=== PATIENT | female | born 2000 | race Caucasian/White ===

== ENCOUNTER 2019-08-10 08:48 | Outpatient (CLI) | payer BC ==
[~2019-08-10] VITALS: Ht 172.7 cm; Wt 106.4 kg
[2019-08-10] MEDS ORDERED: METR500T PO (09:46)
[2019-08-10] MEDS ORDERED: AMOX-358 PO (09:46)
[2019-08-10] MEDS ORDERED: PNV1TABL81 PO (09:46)
== END 2019-08-10 09:54 | disposition home or self-care (01) ==
LOC: PREOP 08:48
PROVIDERS: ATTEND Obstetrics & Gynecology
DX: Z01.818 Encounter for other preprocedural examination (principal)

== ENCOUNTER 2019-10-09 12:17 | Outpatient (CLI) | payer BC ==
[~2019-10-09] VITALS: Ht 172.7 cm; Wt 105.9 kg
[~2019-10-09 12:17] MED LIST: AMOX-358 PO; METR500T PO; PNV1TABL81 PO
[2019-10-09 12:20] VITALS: BP 122/71
--- NOTE | 2019-10-09 12:20 | NUR ---
ALEJANDRA CORDON presented to unit via ambulation from ED, accompanied by friend, with c/o BACK / ABD PAIN. ALEJANDRA CORDON weighed, gowned, voided, and to bed. EFHM and TOCO applied, VS taken. ALEJANDRA CORDON oriented to bed controls, call light, TV, heat, and A/C controls.
[2019-10-09 12:30] VITALS: BP 122/71
--- NOTE | 2019-10-09 12:47 | NUR ---
Dr Gutierrez called and notified of pt arrival. Pt is G1, due 02/20 with c/o constant lower back ache that radiates into abd since last night. notified of FHR, ctx pattern, SVE, urine dipstick, VS. Order to dismiss pt to home.
--- NOTE | 2019-10-09 13:13 | NUR ---
Discharge instructions explained to pt with copy provided to pt. Pt verbalizes understanding of instructions and signs to verify. Pt denies needs or concerns. Ambulates off unit to private vehicle with all personal belongings, accompanied by S.o. No s/s of distress noted.
--- NOTE | 2019-10-11 08:27 | Physician Query-Final Dx ---
CARINA GARNER 10/11/19 0827: Clinic Account Progress/Dx Physician Query: Please give diagnosis Please include # weeks gestation Date of Service Oct 09, 2019 at 12:17 CHRISTOPHER PETTY MD 10/13/19 1428: Clinic Account Progress/Dx DIAGNOSIS: Diagnosis 20 week with false labor CARINA GARNER Oct 11, 2019 08:27 CHRISTOPHER PETTY MD Oct 13, 2019 14:28
== END 2019-10-09 13:13 | disposition home or self-care (01) ==
LOC: WSo 12:17 → LDRP 12:17 → WSo 13:13
PROVIDERS: ATTEND Obstetrics & Gynecology
DX: O26.892 Other specified pregnancy related conditions, second trimester (principal); M54.5 Low back pain; Z3A.20 20 weeks gestation of pregnancy
CPT/HCPCS: 99213

== ENCOUNTER 2019-12-08 22:00 | Outpatient (CLI) | payer BC, MEDICAID ==
[~2019-12-08] VITALS: Ht 172.7 cm; Wt 108.1 kg
--- NOTE | 2019-12-08 22:10 | NUR ---
ALEJANDRA CORDON presented to unit via AMBULATION from ED, accompanied by SO, with c/o VAGINAL BLEEDING,VOMITING. ALEJANDRA CORDON weighed, gowned, voided, and to bed. EFHM and TOCO applied, VS taken. ALEJANDRA CORDON oriented to bed controls, call light, TV, heat, and A/C controls.
[2019-12-08 22:20] VITALS: BP 127/72
[2019-12-08] MEDS ORDERED: D5 LR IV SOLUTION 1,000 ML IV ONE ×2 (22:28→22:45)
[2019-12-08] MEDS ORDERED: METR500T PO (22:57)
[2019-12-08 23:45] VITALS: BP 127/72
--- NOTE | 2019-12-08 23:45 | NUR ---
pt IV discontinued and discharge instruction discussed. No questions at this time. Pt ambulated to private vehicle with SO.
--- NOTE | 2019-12-09 09:39 | Physician Query-Final Dx ---
CARINA GARNER 12/09/19 0939: Clinic Account Progress/Dx Physician Query: Please give diagnosis Please include # weeks gestation Date of Service Dec 08, 2019 at 22:00 CHRISTOPHER PETTY MD 12/09/19 1336: Clinic Account Progress/Dx DIAGNOSIS: Diagnosis 28 weeks - false labor CARINA GARNER Dec 09, 2019 09:39 CHRISTOPHER PETTY MD Dec 09, 2019 13:36
== END 2019-12-08 23:45 | disposition home or self-care (01) ==
LOC: WSo 22:00 → LDRP 22:00 → WSo 23:45
PROVIDERS: ATTEND Obstetrics & Gynecology
DX: O47.02 False labor before 37 completed weeks of gestation, second trimester (principal); Z3A.28 28 weeks gestation of pregnancy

== ENCOUNTER 2020-01-19 22:50 | Outpatient (CLI) | payer MEDICAID ==
[~2020-01-19] VITALS: Ht 172.7 cm; Wt 108.2 kg
--- NOTE | 2020-01-19 22:57 | NUR ---
ALEJANDRA CORDON presented to unit via ambulatory from ED, accompanied by family, with c/o ABD PAIN. ALEJANDRA CORDON weighed, gowned, voided, and to bed. EFHM and TOCO applied, VS taken. ALEJANDRA CORDON oriented to bed controls, call light, TV, heat, and A/C controls.
[2020-01-19 23:07] VITALS: BP 164/82
[2020-01-19 23:12] VITALS: BP 123/71
[2020-01-19 23:16] VITALS: BP 164/82
[2020-01-19 23:17] LABS: BILIRUBIN,URINE NEGATIVE (NEGATIVE); CLARITY,URINE CLOUDY; COLOR,URINE YELLOW; GLUCOSE, URINE (UA) NEGATIVE (NEGATIVE); KETONES,URINE TRACE (NEGATIVE); LEUKOCYTE ESTERASE ,URINE 2+ (NEGATIVE); NITRITE,URINE NEGATIVE (NEGATIVE); PROTEIN,URINE NEGATIVE (NEGATIVE)
--- NOTE | 2020-01-19 23:17 | NUR ---
dr. brito called and updated on pt's arrival and complaints. New orders received.
[2020-01-19 23:25] LABS: BACTERIA,URINE MODERATE /HPF; WBC,URINE 25-50 /HPF
[2020-01-19] MEDS ORDERED: D5 LR IV SOLUTION 1,000 ML IV ONE (23:30)
[2020-01-20] VITALS: BP 133/82
--- NOTE | 2020-01-20 00:17 | NUR ---
Discharge instructions reviewed with pt and s.o. Pt denies any questions or concerns. Encouraged to call if needing anything. Signature sheet signed, placed on chart. Offered wheelchair, denied per pt.
--- NOTE | 2020-01-20 00:33 | NUR ---
IV removed. Pt ambulating off unit at time with s.o. at side. No signs of distress noted.
--- NOTE | 2020-01-20 08:38 | Physician Query-Final Dx ---
CARINA GARNER 01/20/20 0838: Clinic Account Progress/Dx Physician Query: Please give diagnosis Please include # weeks gestation Date of Service Jan 19, 2020 at 22:50 CHRISTOPHER PETTY MD 01/21/20 0736: Clinic Account Progress/Dx DIAGNOSIS: Diagnosis FALSE Labor at 35 weeks gestation CARINA GARNER Jan 20, 2020 08:38 CHRISTOPHER PETTY MD Jan 21, 2020 07:36
== END 2020-01-20 00:33 | disposition home or self-care (01) ==
LOC: WSo 22:50 → LDRP 22:51 → WSo 01-20 00:33
PROVIDERS: ATTEND Obstetrics & Gynecology
DX: O47.03 False labor before 37 completed weeks of gestation, third trimester (principal); Z3A.35 35 weeks gestation of pregnancy
CPT/HCPCS: 81000; 82570; 84156; 87088; 96360; G0463; 99213

== ENCOUNTER 2020-02-09 12:04 | Outpatient (CLI) | payer BC, MEDICAID ==
[~2020-02-09] VITALS: Ht 172 cm; Wt 109.9 kg
[2020-02-09] MEDS ORDERED: FAMO40TA72 PO (15:13)
--- NOTE | 2020-02-15 09:03 | History & Physical ---
History and Physical Date Seen by Provider: Feb 16, 2020 this patient is a 20-year-old 1 femalethat presents at 39 weeks plus gestation Patient had maintained from the very beginning of this that she did not want to experienced labor. She did not want a pelvic trauma, labor pain, vaginal damage and/or repair. patient specifically requested primary delivery. We had a lengthy discussion regarding delivery options, risks with both vaginal delivery and , recovery and follow-up with both. Surgical risk and complications with both. Pain control with both. Patient has maintained throughout the that she does not want to labor. We have planned a primary . Patient denies rupture membranes or bleeding. Allergies are to latex Medications are vitamins Medical social and surgical histories are per the antepartum record HEENT exam is normal Neck is supple no lymphadenopathy and no thyromegaly Abdomen is gravid Extremities show no clubbing or cyanosis There is no Homans sign. Pelvic exam is deferred Assessment and plan term at 39+ weeks gestation patient who specifically requests primary delivery. Patient has been fully counseled regarding surgical risks complications recovery and follow-up. She understands and accepts those risks and is ready to proceed 39 week gestation admitted for primary delivery Allergies and Home Medications Allergies Coded Allergies: latex (Verified Allergy, Mild, RASH, 02/09/20) Home Medications Famotidine 40 Mg Tablet, 40 MG PO BID, (Reported) CHRISTOPHER PETTY MD Feb 15, 2020 09:03
== END 2020-02-09 15:22 | disposition home or self-care (01) ==
LOC: PREOP 12:04
PROVIDERS: ATTEND Obstetrics & Gynecology
DX: Z01.818 Encounter for other preprocedural examination (principal)

== ENCOUNTER 2020-02-16 06:15 | Inpatient (IN) | payer MEDICAID ==
[2020-02-16] VITALS (9 sets, daily range): BP systolic 99–130; BP diastolic 65–83
[~2020-02-16] VITALS: Ht 172.7 cm; Wt 107.8 kg
[~2020-02-16 06:15] MED LIST changes: +CITRIC ACID/SOB CIT (BICITRA) 30 ML UDC ONE; +FAMO40TA72 PO; +FAMOTIDINE 20MG/2ML IV (PEPCID) ONE; +METOCLOPRAMIDE INJ 10 MG/2 ML (REGLAN) ONE; +ceFAZolin 2 GM IV Premixed 50 ML ONE; +metroNIDAZOLE 500MG/100ML IVPB 100 ML ONE
--- NOTE | 2020-02-16 06:15 | NUR ---
ALEJANDRA CORDON presented to unit via cs from ED, accompanied by s/o, for . ALEJANDRA CORDON weighed, gowned, voided, and to bed. EFHM and TOCO applied, VS taken. ALEJANDRA CORDON oriented to bed controls, call light, TV, heat, and A/C controls. per nancy rn
[2020-02-16] MEDS ORDERED: D5 LR IV SOLUTION 1,000 ML IV SCH ×2 (06:23→08:11)
[2020-02-16] MEDS ORDERED: LACTATED RINGERS 1,000 ML IV PRN ×2 (06:27)
[2020-02-16] MEDS ORDERED: ceFAZolin 2 GM IV Premixed 50 ML IV ONE (06:30)
[2020-02-16] MEDS ORDERED: CATHETER FLUSH 10 ML SYR IV PRN (06:30)
[2020-02-16] MEDS ORDERED: metroNIDAZOLE 500MG/100ML IVPB 100 ML IV ONE (06:30)
[2020-02-16] MEDS ORDERED: METOCLOPRAMIDE INJ 10 MG/2 ML (REGLAN) IV ONE (06:30)
[2020-02-16] MEDS ORDERED: FAMOTIDINE 20MG/2ML IV (PEPCID) IV ONE (06:30)
[2020-02-16] MEDS ORDERED: CITRIC ACID/SOB CIT (BICITRA) 30 ML UDC PO ONE (06:30)
[2020-02-16] MEDS ORDERED: OXYTOCIN PRE-MIX DRIP 1,000 ML IV ONE (06:32)
[2020-02-16] MEDS ORDERED: BUPIVACAINE 0.5% 30 ML (SENSORCAINE) VIAL ONE (06:40)
[2020-02-16] MEDS ORDERED: fentaNYL INJECTION 100 MCG/2 ML AMP ONE (06:41)
[2020-02-16 07:05] LABS: BASOPHILS % (AUTO) 0 % (0-10); EOSINOPHILS # (AUTO) 0.1 10^3/uL (0.0-0.3); EOSINOPHILS % (AUTO) 2 % (0-10); HEMATOCRIT 33 % (35-52); HEMOGLOBIN 11.1 G/DL (11.5-16.0); LYMPHOCYTES # (AUTO) 2.7 X 10^3 (1.0-4.0); LYMPHOCYTES % (AUTO) 30 % (12-44); MEAN CORPUSCULAR HEMOGLOBIN 28 PG (25-34); MEAN CORPUSCULAR HGB CONC 33 G/DL (32-36); MEAN CORPUSCULAR VOLUME 85 FL (80-99); MEAN PLATELET VOLUME 11.7 FL (7.4-10.4); MONOCYTES # (AUTO) 0.8 X 10^3 (0.0-1.0); MONOCYTES % (AUTO) 9 % (0-12); NEUTROPHILS # (AUTO) 5.3 X 10^3 (1.8-7.8); NEUTROPHILS % (AUTO) 59 % (42-75); PLATELET COUNT 251 10^3/uL (130-400)
[2020-02-16] MEDS ORDERED: KETAMINE/NaCl 50 MG/5 ML SYRINGE (ED ONLY) ONE (07:09)
--- NOTE | 2020-02-16 07:14 | NUR ---
Monitors displaced. ambulated to OB c/s room with OR staff @ side.
[2020-02-16] MEDS ORDERED: KETOROLAC 30 MG/ML VIAL ONE (07:38)
[2020-02-16] MEDS ORDERED: OXYTOCIN PRE-MIX DRIP 500 ML IV SCH (08:11)
[2020-02-16] MEDS ORDERED: MEASLES,MUMPS,RUBELLA 1 EA INJ SC ONE (08:15)
[2020-02-16] MEDS ORDERED: ONDANSETRON 4 MG/2 ML (SDV) Z0FRAN IVP PRN (08:15)
[2020-02-16] MEDS ORDERED: TETANUS,DIPTH,PERTUSS P/F (BOOSTRIX) 0.5 ML VIAL IM ONE (08:15)
--- NOTE | 2020-02-16 08:18 | OPERATIVE REPORT ---
DATE OF SERVICE: 02/16/2020 PREOPERATIVE DIAGNOSIS: Term with high station at term and request for primary delivery. POSTOPERATIVE DIAGNOSIS: Term with high station at term and request for primary delivery. OPERATIVE PROCEDURE: Primary low transverse delivery of a viable male infant with Apgars of 8 and 9 at 1 and 5 minutes respectively, weight of 8 pounds and 3 ounces. time of 07:45 and a cord blood pH of 7.31. OPERATIVE DESCRIPTION: With the patient in the supine position under satisfactory spinal analgesia, the patient was prepped and draped in the usual fashion for abdominal surgery. Delarosa catheter was placed in the urinary bladder. A Pfannenstiel incision was made through the skin with scalpel and the patient's abdomen entered in the usual manner. Bladder retractor was placed in position. A clean scalpel used to make a 4 cm hysterotomy incision transversely across the lower uterine segment that was extended by blunt dissection as well. The presenting part was very high in the pelvis and in order to avoid undue abdominal pressure, Worthington forceps were applied to bring the presenting part down through the uterine incision. The was bulb suctioned on delivery of the head and again on completion of delivery. The umbilical cord was doubly clamped and cut. The passed to the pediatric nurse in attendance for the delivery. Cord bloods were obtained. The placenta delivered spontaneously Dawkins. It was normal with a 3-vessel cord. The uterus was exteriorized and interior wiped clean with a wet laparotomy sponge. Uterine incisions was then closed with a running locked suture of 2-0 Vicryl. Hemostasis was complete. The uterus was returned to the abdominal cavity. All blood clot and debris were removed from the abdominal cavity. With sponge, needle counts correct and hemostasis assured, the anterior parietal peritoneum was closed with a running suture of 2-0 Vicryl. Rectus muscles were closed with that suture as well. The rectus fascia was closed with 2-0 Vicryl, subcutaneous tissue was closed with 2-0 Vicryl and the skin was stapled. Sponge and needle counts were correct on completion of the procedure. Estimated blood loss was around 400 mL. The patient tolerated the delivery well and remained in the OR. Pending transferred to the recovery room, the baby remained with the mom. Job ID: [id number] DocumentID: [id number] Dictated Date: 02/16/2020 08:08:17 Pulp Roller Date: 02/16/2020 08:18:15 Dictated By: CHRISTOPHER PETTY MD
[2020-02-16] MEDS ORDERED: DOCUSATE SODIUM 100 MG (COLACE) CAP PO SCH (09:00)
--- NOTE | 2020-02-16 09:30 | NUR ---
pt transferred to room 306 via bed with and s/o @ side. call light within reach. familiarized with room surroundings.
[2020-02-16] MEDS: oxyCODONE/APAP 10/325MG (PERCOCET 10) TABLET PO PRN ×3 (12:47→20:27)
[2020-02-16] MEDS: KETOROLAC 30 MG/ML VIAL IVP SCH ×2 (14:05→20:27)
--- NOTE | 2020-02-16 19:24 | NUR ---
report given to next shift.
[2020-02-16] MEDS: IBUPROFEN 800 MG (MOTRIN) TAB PO SCH ×2 (19:43→23:57)
[2020-02-16] MEDS: DOCUSATE SODIUM 100 MG (COLACE) CAP PO SCH ×2 (19:44→20:26)
[2020-02-16] MEDS ORDERED: IBUP-1780 PO (20:52)
[2020-02-16] MEDS ORDERED: OXYC1TAB12 PO (20:52)
[2020-02-16] MEDS ORDERED: DCS100C PO (20:52)
--- NOTE | 2020-02-16 20:53 | Discharge Inst-Surgical ---
Discharge Inst-Surgical Depart Medication/Instructions New, Converted or Re-Newed RX: RX on Chart Consults/Follow Up Patient Instructions: as directed Orders & Referrals Follow Up Appt: RTC 1 week for incision check. Call to make follow up appt. for patient in 4 weeks. Wound Care: Remove antonio, apply benzoin and steri strips. Activity Per routine post instructions. Please call in RX to patient pharmacy. Diet as tolerated Patient may shower or tub bathe as desired. Continue home meds Activity Activity as Tolerated: No Diet Discharge Diet: No Restrictions CHRISTOPHER PETTY MD Feb 16, 2020 20:53
[2020-02-17] MEDS: KETOROLAC 30 MG/ML VIAL IVP SCH (01:51)
[2020-02-17 04:05] VITALS: BP 115/74
--- NOTE | 2020-02-17 07:50 | NUR ---
Dr Gutierrez here to see pt. No new orders rec'd. Plan for discharge tomorrow.
--- NOTE | 2020-02-17 07:56 | Progress Note ---
Standard Progress Note Progress Notes/Assess & Plan Date Seen by a Provider: Feb 17, 2020 Time Seen by a Provider: 07:54 Progress/Assessment & Plan this patient is without complaint. She is ambulating, voiding, tolerating oral intake well has good pain control. Vital Signs Date Time Temp Pulse Resp B/P (MAP) Pulse Ox O2 Delivery O2 Flow Rate FiO2 02/17/20 04:05 36.0 90 18 115/74 (88) 95 Room Air 02/16/20 23:25 36.3 80 18 116/82 (93) 97 Room Air 02/16/20 20:27 36.0 82 20 114/73 (87) 99 Room Air 02/16/20 17:00 36.4 122 20 123/75 (91) 97 Room Air 02/16/20 14:35 Room Air 02/16/20 12:44 36.1 80 18 119/71 (87) 98 Room Air 02/16/20 09:00 Room Air 02/16/20 09:00 35.6 18 125/83 (97) 99 Room Air 02/16/20 08:45 36.1 18 103/69 (80) 98 Room Air 02/16/20 08:45 Room Air 02/16/20 08:30 Room Air 02/16/20 08:30 36.0 18 99/69 (79) 99 Room Air 02/16/20 08:15 36.1 16 111/65 (80) 98 Room Air 02/16/20 08:15 Room Air I & O 02/17/20 07:00 Intake Total 2250 ml Output Total 175 ml Balance 2075 ml vital signs are stable. Patient is afebrile. Fundus is firm below the umbilicus and nontender.incision clean dry and intact Extremities show no clubbing or cyanosis. There is no Homans sign. Assessment and plan postoperative day number 1 status post primary delivery doing well. Plan is for routine convalescence care CHRISTOPHER PETTY MD Feb 17, 2020 07:56
[2020-02-17 09:00] VITALS: BP 129/73
[2020-02-17] MEDS: IBUPROFEN 800 MG (MOTRIN) TAB PO SCH ×3 (09:01→21:15)
[2020-02-17] MEDS: DOCUSATE SODIUM 100 MG (COLACE) CAP PO SCH ×2 (09:01→21:15)
[2020-02-17] MEDS: oxyCODONE/APAP 10/325MG (PERCOCET 10) TABLET PO PRN ×2 (09:01→17:15)
[2020-02-17 15:18] VITALS: BP 119/73
--- NOTE | 2020-02-17 15:20 | NUR ---
Pt c/o of discomfort from laying in bed. Encouraged to ambulate in hallways, as pt has not yet ambulated outside of room. Pt declines right now but states she may later. Instructed pt to ensure is in crib if she takes with her. Educated on hugs alarm and trying to avoid elevator.
--- NOTE | 2020-02-17 15:46 | Anesthesia-Regional Post-Op ---
Regional Patient Condition Mental Status: Alert, Oriented x3 Circulation: Same as Pre-Op Headache: Absent Sensation: Full Recovery Motor Block: Absent Post Op Complications Complications None Follow Up Care/Instructions Patient Instructions None needed. Anesthesia/Patient Condition Patient was seen this morning in post-op rounds and she was doing well, no complaints, stable vital signs, no apparent adverse anesthesia problems. ANETTE FISHER DO Feb 17, 2020 15:46
--- NOTE | 2020-02-17 17:15 | NUR ---
Pt requesting pain medication at this time. Two percocet given. Again, encouraged pt to ambulate in hallways. Pt states she wants to shower and will walk after pain pills kick in. noted to be unswaddled and undressed in open crib. Educated on need for swaddling for temperature regulation. Parents state "doesn't like to be swaddled and keeps kicking it off". Infant reswaddled at this time and parents educated on dangers of getting too cold.
--- NOTE | 2020-02-17 18:40 | NUR ---
To room to round on pt. Pt states she is still uncomfortable and has not been up to ambulate. Again, encouraged ambulation. Pt states she needs help getting up, but isn't sure how she needs help. RN offered assistance at this time and encourages ambulation as it will help with her discomfort. Pt refuses. Encouraged to call when ready for assistance.
--- NOTE | 2020-02-17 19:39 | NUR ---
Patient ambulating in hallway with s/o and in crib.
[2020-02-17 21:22] VITALS: BP 114/71
--- NOTE | 2020-02-17 22:00 | NUR ---
assistance given at this time. Reinforced the importance of a schedule of 2-3hrs with patient and that importance of calling for assistance if infant will not wake or latch. Patient verbalized understanding.
--- NOTE | 2020-02-18 00:35 | NUR ---
Patient . No needs or concerns voiced when asked. Will continue to monitor.
[2020-02-18] MEDS: IBUPROFEN 800 MG (MOTRIN) TAB PO SCH ×3 (03:02→15:02)
[2020-02-18 03:05] VITALS: BP 117/66
--- NOTE | 2020-02-18 07:20 | NUR ---
here. dismissal orders received.
--- NOTE | 2020-02-18 07:25 | Progress Note ---
Standard Progress Note Progress Notes/Assess & Plan Date Seen by a Provider: Feb 18, 2020 Time Seen by a Provider: 07:24 Progress/Assessment & Plan this patient is without complaint. She is ambulating, voiding, tolerating oral intake well has good pain control. Vital Signs Date Time Temp Pulse Resp B/P (MAP) Pulse Ox O2 Delivery O2 Flow Rate FiO2 02/17/20 04:05 36.0 90 18 115/74 (88) 95 Room Air 02/16/20 23:25 36.3 80 18 116/82 (93) 97 Room Air 02/16/20 20:27 36.0 82 20 114/73 (87) 99 Room Air 02/16/20 17:00 36.4 122 20 123/75 (91) 97 Room Air 02/16/20 14:35 Room Air 02/16/20 12:44 36.1 80 18 119/71 (87) 98 Room Air 02/16/20 09:00 Room Air 02/16/20 09:00 35.6 18 125/83 (97) 99 Room Air 02/16/20 08:45 36.1 18 103/69 (80) 98 Room Air 02/16/20 08:45 Room Air 02/16/20 08:30 Room Air 02/16/20 08:30 36.0 18 99/69 (79) 99 Room Air 02/16/20 08:15 36.1 16 111/65 (80) 98 Room Air 02/16/20 08:15 Room Air I & O 02/17/20 07:00 Intake Total 2250 ml Output Total 175 ml Balance 2075 ml vital signs are stable. Patient is afebrile. Fundus is firm below the umbilicus and nontender.incision clean dry and intact Extremities show no clubbing or cyanosis. There is no Homans sign. Assessment and plan postoperative day number 1 status post primary delivery doing well. Plan is for routine convalescence care February 18, 2020 Patient is without complaint. She is ambulating, voiding, tolerating oral intake well and has good pain control. Patient is requesting discharge home. Vital Signs Date Time Temp Pulse Resp B/P (MAP) Pulse Ox O2 Delivery O2 Flow Rate FiO2 02/18/20 03:05 36.4 68 18 117/66 (83) 98 Room Air 02/17/20 21:22 36.4 69 18 114/71 (85) 98 Room Air 02/17/20 15:18 36.6 80 18 119/73 (88) 98 Room Air 02/17/20 09:00 36.6 79 18 129/73 (91) 98 Room Air vital signs are stable. Patient is afebrile. The abdomen is benign. The fundus is firm below the umbilicus and nontender. The incision is clean dry and intact. Extremities show no clubbing cyanosis. There is no Homans sign. There is some pretibial pitting edema that is normal. Assessment and plan postoperative day number 2 status post primary delivery doing well. Plan is for discharge home with follow-up in clinic Final Diagnosis 39 week primary delivery CHRISTOPHER PETTY MD Feb 18, 2020 07:25
[2020-02-18 08:35] VITALS: BP 123/59
--- NOTE | 2020-02-18 08:35 | NUR ---
initial shift assessment completed, see interventions for further. POC reviewed, states understanding.
[2020-02-18] MEDS: DOCUSATE SODIUM 100 MG (COLACE) CAP PO SCH (08:36)
--- NOTE | 2020-02-18 12:35 | NUR ---
antonio dc'd per Dr's orders. incision edges well approximated, no sx's of infection noted. Benzoine with steri-strips applied. pt tolerated well.
--- NOTE | 2020-02-18 12:50 | NUR ---
dismissal instructions given, verbalizes understanding. reviewed follow up appointments and Rx's. signature page signed, placed on chart.
--- NOTE | 2020-02-18 13:24 | NUR ---
Ashvin and Cira Rx's called into [facility] in [place] per pt's request.
--- NOTE | 2020-02-18 15:20 | NUR ---
pt dismissed to private vehicle via w/c with this RN, and s/o @ side. secured in rear facing car seat upon arrival to vehicle. pt stable with no sx's of distress noted.
== END 2020-02-18 15:20 | disposition home or self-care (01) | DRG 787 ==
LOC: LDRP 06:15 → WS 09:30
PROVIDERS: ADMIT Obstetrics & Gynecology; ATTEND Obstetrics & Gynecology
PROC: 10D00Z1 Extraction of Products of Conception, Low, Open Approach (ICD-10-PCS; principal; 2020-02-16 07:16)
DX: O32.4XX0 Maternal care for high head at term, not applicable or unspecified (principal); O24.113 Pre-existing type 2 diabetes mellitus, in pregnancy, third trimester; O99.613 Diseases of the digestive system complicating pregnancy, third trimester; E11.9 Type 2 diabetes mellitus without complications; K21.9 Gastro-esophageal reflux disease without esophagitis; Z37.0 Single live birth; Z3A.39 39 weeks gestation of pregnancy
CPT/HCPCS: 36415; 85025; 86850; 86900; 86901; 87081; 88307; 94664

== ENCOUNTER 2021-12-16 12:24 | Emergency (ER) | payer MEDICAID ==
[~2021-12-16 12:24] MED LIST changes: -CITRIC ACID/SOB CIT (BICITRA) 30 ML UDC ONE; +DOCU-239 PO; -FAMOTIDINE 20MG/2ML IV (PEPCID) ONE; +IBUP-1780 PO; -METOCLOPRAMIDE INJ 10 MG/2 ML (REGLAN) ONE; +OXYC1TAB12 PO; -ceFAZolin 2 GM IV Premixed 50 ML ONE; -metroNIDAZOLE 500MG/100ML IVPB 100 ML ONE
[2021-12-16] MEDS ORDERED: NS IV 1000 ML 1,000 ML IV STA (12:39)
--- NOTE | 2021-12-16 12:42 | ED Neurological Problem ---
General Chief Complaint: Neurological Problems Stated Complaint: FALL - SEIZURE - VOMITING - Source: patient Exam Limitations: no limitations History of Present Illness Date Seen by Provider: Dec 16, 2021 Time Seen by Provider: 12:41 Initial Comments Patient is a 21-year-old female with a history of absent seizures who presents the ED for fall, seizure and vomiting. Patient states yesterday evening she spent drinking alcohol. She woke up this morning and vomited several episodes without any blood. She reports white specks of yellowish material in her vomit. She states she took a shower around 1130 when all of a sudden she did not feel right and had a seizure. She states she fell but unsure if she hit her head. She woke up confused. Difficulty getting out words and difficulty open her eyes. 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 No history of tonic-clonic type seizures. Patient is unsure the length of the seizure. This was not witnessed. She has mild dizziness and headache at this time. She was brought to ED by POV. She has no current neck pain, back pain, chest pain, abdominal pain. She did vomit a few extra times after the seizures. She states she feels dehydrated. Patient on arrival alert and orient x3. GCS 15. She denies of any current drug use. She reports history of irregular menstrual cycle. No heavy vaginal bleeding. No history of anemia. Denies dysuria, hematuria, visual loss, unilateral muscle weakness or sensory changes. Allergies and Home Medications Allergies Coded Allergies: latex (Verified Allergy, Mild, RASH, 02/09/20) Patient Home Medication List Home Medication List Reviewed: Yes Docusate Sodium (Dok) 100 Mg Capsule, 100 MG PO BID Prescribed by: CHRISTOPHER PAZ on 02/16/202051 Famotidine (Pepcid) 40 Mg Tablet, 40 MG PO BID, (Reported) Entered as Reported by: NIRAJ RÍOS on 02/09/20 151 Ibuprofen (Ibuprofen) 800 Mg Tablet, 800 MG PO Q6HR Prescribed by: CHRISTOPHER PAZ on 02/16/202051 Ondansetron (Ondansetron Odt) 4 Mg Tab.rapdis, 4 MG PO Q4H Prescribed by: ANNITA WU on 12/16/21 1426 Oxycodone HCl/Acetaminophen (Percocet 10-325 mg Tablet) 1 Each Tablet, 1 TAB PO Q4HR PRN for PAINMODS Prescribed by: CHRISTOPHER PAZ on 02/16/202051 Review of Systems Review of Systems Constitutional: No chills, No diaphoresis; dizziness; No malaise, No weakness Eyes: Denies Drainage, Denies Decreased Acuity, Denies Photophobia, Denies Previous Injury Ears, Nose, Mouth, Throat: denies ear pain, denies ear discharge Respiratory: No cough, No short of breath Cardiovascular: No chest pain Gastrointestinal: No abdominal pain, No diarrhea; nausea, vomiting Genitourinary: No decreased output Musculoskeletal: No back pain, No joint pain Skin: No change in color All Other Systems Reviewed Negative Unless Noted: Yes Past Zbzrads-Avmlas-Tngkck Hx Immunizations Up To Date PED Vaccines UTD: Yes Seasonal Allergies Seasonal Allergies: No Past Medical History Surgeries: Yes (ankle sx) Respiratory: No Cardiac: No (murmur when as a child) Neurological: No Female Reproductive Disorders: Menstrual Problems Sexually Transmitted Disease: No HIV/AIDS: No Genitourinary: No Gastrointestinal: Yes Gastroesophageal Reflux Musculoskeletal: No Endocrine: No HEENT: Yes (GLASSES) Loss of Vision: Denies Hearing Impairment: Denies Cancer: No Psychosocial: No Integumentary: No Blood Disorders: No Adverse Reaction/Blood Tranf: No (N/A) Family Medical History Patient reports no known family medical history. Physical Exam Vital Signs Vital Signs - First Documented 12/16/21 12:44 Temp 36.9 Pulse 90 Resp 16 B/P (MAP) 112/94 (100) Capillary Refill : Height, Weight, BMI Height: '" Weight: lbs. oz. kg; 36.14 BMI Method: General Appearance: WD/WN, no apparent distress HEENT: PERRL/EOMI, normal ENT inspection, TMs normal, pharynx normal Neck: non-tender, full range of motion, supple, normal inspection Respiratory: chest non-tender, lungs clear, normal breath sounds, no respiratory distress, no accessory muscle use Cardiovascular: regular rate, rhythm, no edema, no gallop, no JVD Gastrointestinal: normal bowel sounds, non tender, soft, no organomegaly Back: normal inspection, no CVA tenderness, no vertebral tenderness Extremities: normal range of motion, non-tender, normal inspection, no pedal edema, no calf tenderness 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, no motor/sensory deficits, alert, normal mood/affect, oriented x 3 Crainal Nerves: normal hearing, normal speech, PERRL Coordination/Gait: normal finger to nose, normal gait Motor/Sensory: no motor deficit, no sensory deficit Skin: normal color, warm/dry Focused Exam Lactate Level 12/16/21 12:37: Lactic Acid Level 2.24*H Lactic Acid Level Laboratory Tests Test 12/16/21 12:37 Lactic Acid Level 2.24 MMOL/L (0.50-2.00) *H Progress/Results/Core Measures Results/Orders Lab Results Laboratory Tests Test 12/16/21 12:37 12/16/21 14:06 Range/Units White Blood Count 9.2 4.3-11.0 10^3/uL Red Blood Count 4.83 3.80-5.11 10^6/uL Hemoglobin 14.1 11.5-16.0 g/dL Hematocrit 42 35-52 % Mean Corpuscular Volume 87 80-99 fL Mean Corpuscular Hemoglobin 29 25-34 pg Mean Corpuscular Hemoglobin Concent 34 32-36 g/dL Red Cell Distribution Width 13.2 10.0-14.5 % Platelet Count 329 130-400 10^3/uL Mean Platelet Volume 9.9 9.0-12.2 fL Immature Granulocyte % (Auto) 0 % Neutrophils (%) (Auto) 76 H 42-75 % Lymphocytes (%) (Auto) 17 12-44 % Monocytes (%) (Auto) 6 0-12 % Eosinophils (%) (Auto) 1 0-10 % Basophils (%) (Auto) 0 0-10 % Neutrophils # (Auto) 7.0 1.8-7.8 10^3/uL Lymphocytes # (Auto) 1.5 1.0-4.0 10^3/uL Monocytes # (Auto) 0.6 0.0-1.0 10^3/uL Eosinophils # (Auto) 0.1 0.0-0.3 10^3/uL Basophils # (Auto) 0.0 0.0-0.1 10^3/uL Immature Granulocyte # (Auto) 0.0 0.0-0.1 10^3/uL Sodium Level 142 135-145 MMOL/L Potassium Level 4.2 3.6-5.0 MMOL/L Chloride Level 105 98-107 MMOL/L Carbon Dioxide Level 23 21-32 MMOL/L Anion Gap 14 5-14 MMOL/L Blood Urea Nitrogen 10 7-18 MG/DL Creatinine 0.77 0.60-1.30 MG/DL Estimat Glomerular Filtration Rate 111 BUN/Creatinine Ratio 13 Glucose Level 122 H 70-105 MG/DL Lactic Acid Level 2.24 *H 0.50-2.00 MMOL/L Calcium Level 9.8 8.5-10.1 MG/DL Corrected Calcium 9.4 8.5-10.1 MG/DL Magnesium Level 1.6 1.6-2.4 MG/DL Total Bilirubin 0.6 0.1-1.0 MG/DL Aspartate Amino Transf (AST/SGOT) 19 5-34 U/L Alanine Aminotransferase (ALT/SGPT) 24 0-55 U/L Alkaline Phosphatase 62 40-136 U/L Total Protein 8.1 6.4-8.2 GM/DL Albumin 4.5 3.2-4.5 GM/DL Serum Alcohol < 10 <10 MG/DL Urine Color YELLOW Urine Clarity CLEAR Urine pH 8.0 5-9 Urine Specific [place] 1.015 L 1.016-1.022 Urine Protein 2+ H NEGATIVE Urine Glucose (UA) NEGATIVE NEGATIVE Urine Ketones NEGATIVE NEGATIVE Urine Nitrite NEGATIVE NEGATIVE Urine Bilirubin NEGATIVE NEGATIVE Urine Urobilinogen 0.2 < = 1.0 MG/DL Urine Leukocyte Esterase NEGATIVE NEGATIVE Urine RBC (Auto) NEGATIVE NEGATIVE Urine RBC RARE /HPF Urine WBC RARE /HPF Urine Squamous Epithelial Cells 5-10 /HPF Urine Crystals NONE /LPF Urine Bacteria TRACE /HPF Urine Casts NONE /LPF Urine Mucus SMALL H /LPF Urine Culture Indicated NO Urine Test NEGATIVE NEGATIVE Urine Opiates Screen NEGATIVE NEGATIVE Urine Oxycodone Screen NEGATIVE NEGATIVE Urine Methadone Screen NEGATIVE NEGATIVE Urine Propoxyphene Screen NEGATIVE NEGATIVE Urine Barbiturates Screen NEGATIVE NEGATIVE Ur Tricyclic Antidepressants Screen NEGATIVE NEGATIVE Urine Phencyclidine Screen NEGATIVE NEGATIVE Urine Amphetamines Screen NEGATIVE NEGATIVE Urine Methamphetamines Screen NEGATIVE NEGATIVE Urine Benzodiazepines Screen NEGATIVE NEGATIVE Urine Cocaine Screen NEGATIVE NEGATIVE Urine Cannabinoids Screen POSITIVE H NEGATIVE My Orders Orders - EDD VARGAS Ua Culture If Indicated (12/16/21 12:30) Hcg,Qualitative Urine (12/16/21 12:30) Ekg Tracing (12/16/21 12:36) Cbc With Automated Diff (12/16/21 12:39) Comprehensive Metabolic Panel (12/16/21 12:39) Ekg Tracing (12/16/21 12:39) Magnesium (12/16/21 12:39) Drug Screen Stat (Urine) (12/16/21 12:39) Lactic Acid Analyzer (12/16/21 12:39) Alcohol (12/16/21 12:39) Ns Iv 1000 Ml (Sodium Chloride 0.9%) (12/16/21 12:39) Ondansetron Injection (Zofran Injectio (12/16/21 12:45) Ct Head Wo (12/16/21 12:41) Promethazine Injection (Phenergan Injec (12/16/21 13:30) Medications Given in ED Current Medications Medications Dose Ordered Sig/[place] Route Start Time Stop Time Status Last Admin Dose Admin Ondansetron HCl 4 mg ONCE ONCE IVP 12/16/21 12:45 12/16/21 12:46 DC 12/16/21 12:56 4 MG Promethazine HCl 25 mg ONCE ONCE IVP 12/16/21 13:30 12/16/21 13:31 DC 12/16/21 13:55 25 MG Vital Signs/I&O 12/16/21 12/16/21 12:44 14:54 Temp 36.9 36.9 Pulse 90 81 Resp 16 16 B/P (MAP) 112/94 (100) 113/61 Comment Sinus rhythm, 94 bpm, QRS duration 85 MS, QTc 400 MS Departure Communication (PCP) Patient on arrival no seizure-like activity. Did not appear to be postictal. Potential seizure around Alex 30. On arrival around 1230 neuro exam unremarkable. History of absent seizures not currently on medication. Patient without any focal neural deficits. No evidence of trauma to the head. She has no cervical, thoracic or lumbar midline tenderness. Patient EKG normal sinus rhythm. Lab work was otherwise unremarkable. Her lactic acid was 2.24 which may be result of a potential seizure or nonspecific. She does not appear toxic. No vomiting here in the ED. Yesterday evening she drank heavily. She was given a liter fluid with a round of Zofran and Phenergan with improvement. Patient was observed without seizure activity. She was requesting be discharged. Did discuss starting on Keppra until seen by neurology. Unclear if she did have a seizure. She may have fainted secondary to not feeling well or vomiting. Unclear if this was a tonic-clonic type seizure as there was no witness. She does not want to take medication at this time. It was strongly recommended not to drive any machinery, swim until cleared by neurology. Discussed no alcohol at this time. She denies history of alcohol abuse. Drug screen positive for marijuana. Negative for . No evidence suggesting infection related. CT scan of the head was negative for hemorrhaging or mass. Return precaution were discussed with patient. Patient at discharge with a steady gait. Neurologically intact. No change in mentation. Provided neurology outpatient follow-up. Impression Primary Impression: Vomiting Additional Impression: Seizure-like activity Disposition: 01 HOME, SELF-CARE Condition: Stable Departure-Patient Inst. Decision time for Depature: 14:25 Referrals: [facility] [place],LOCAL PHYSICIAN (PCP) Primary Care Physician Patient Instructions: Nausea and Vomiting, Adult (DC), Seizures, Adult ED Add. Discharge Instructions: Recommend follow-up with neurology. Recommend not operating any machinery driving or swimming until further evaluate. Recommend staying hydrated. If any seizure-like activity return back to ED for further evaluation. All discharge instructions reviewed with patient and/or family. Voiced und erstanding. Scripts Ondansetron (Ondansetron Odt) 4 Mg Tab.rapdis 4 MG PO Q4H, #8 TAB Prov: EDD VARGAS 12/16/21 EDD VARGAS Dec 16, 2021 12:42
[2021-12-16] MEDS ORDERED: ONDANSETRON 4 MG/2 ML (SDV) Z0FRAN IVP ONE (12:45)
[2021-12-16 12:46] LABS: BASOPHILS % (AUTO) 0 % (0-10); EOSINOPHILS # (AUTO) 0.1 10^3/uL (0.0-0.3); EOSINOPHILS % (AUTO) 1 % (0-10); HEMATOCRIT 42 % (35-52); HEMOGLOBIN 14.1 g/dL (11.5-16.0); LYMPHOCYTES # (AUTO) 1.5 10^3/uL (1.0-4.0); LYMPHOCYTES % (AUTO) 17 % (12-44); MEAN CORPUSCULAR HEMOGLOBIN 29 pg (25-34); MEAN CORPUSCULAR HGB CONC 34 g/dL (32-36); MEAN CORPUSCULAR VOLUME 87 fL (80-99); MEAN PLATELET VOLUME 9.9 fL (9.0-12.2); MONOCYTES # (AUTO) 0.6 10^3/uL (0.0-1.0); MONOCYTES % (AUTO) 6 % (0-12); NEUTROPHILS % (AUTO) 76 % (42-75); PLATELET COUNT 329 10^3/uL (130-400); WHITE BLOOD COUNT 9.2 10^3/uL (4.3-11.0)
[2021-12-16 13:03] LABS: ALBUMIN 4.5 GM/DL (3.2-4.5); CHLORIDE 105 MMOL/L (98-107); POTASSIUM 4.2 MMOL/L (3.6-5.0); SODIUM 142 MMOL/L (135-145)
[2021-12-16 13:04] LABS: CALCIUM 9.8 MG/DL (8.5-10.1)
[2021-12-16 13:05] LABS: GLUCOSE 122 MG/DL (70-105); TOTAL PROTEIN 8.1 GM/DL (6.4-8.2)
[2021-12-16 13:06] LABS: CARBON DIOXIDE 23 MMOL/L (21-32)
[2021-12-16 13:07] LABS: BILIRUBIN,TOTAL 0.6 MG/DL (0.1-1.0)
[2021-12-16 13:09] LABS: ALKALINE PHOSPHATASE 62 U/L (40-136); CREATININE SERUM 0.77 MG/DL (0.60-1.30); GFR ESTIMATED 111
--- NOTE | 2021-12-16 13:09 | Diagnostic Imaging Report ---
PROCEDURE: CT head without contrast. TECHNIQUE: Multiple contiguous axial images were obtained through the brain without the use of intravenous contrast. Auto Exposure Controls were utilized during the CT exam to meet ALARA standards for radiation dose reduction. INDICATION: 21-year-old female, seizure. CORRELATION: None FINDINGS: There is no midline shift or mass effect. The ventricles demonstrate a cavum septum pellucidum vergae, no clinical significance. Sulci are unremarkable. No evidence for acute intracranial hemorrhage, abnormal extra-axial fluid collections or cerebral edema is present. The basilar cisterns are unremarkable. The bony calvarium is intact. Trace mucosal thickening right maxillary sinus. Rather prominent dental caries right maxillary molar. IMPRESSION: Negative appearing noncontrast CT of the head. Dictated by: Dictated on workstation # [id number]
[2021-12-16 13:10] LABS: BUN/CREATININE RATIO 13
[2021-12-16 13:12] LABS: ALANINE AMINOTRANSFERASE 24 U/L (0-55); MAGNESIUM 1.6 MG/DL (1.6-2.4)
[2021-12-16] MEDS ORDERED: PROMETHAZINE INJ 25 MG/ML (PHENERGAN) AMP IVP ONE (13:30)
[2021-12-16 14:20] LABS: BILIRUBIN,URINE NEGATIVE (NEGATIVE); CLARITY,URINE CLEAR; COLOR,URINE YELLOW; GLUCOSE, URINE (UA) NEGATIVE (NEGATIVE); KETONES,URINE NEGATIVE (NEGATIVE); LEUKOCYTE ESTERASE ,URINE NEGATIVE (NEGATIVE); NITRITE,URINE NEGATIVE (NEGATIVE); PROTEIN,URINE 2+ (NEGATIVE)
[2021-12-16] MEDS ORDERED: ONDA4TAB11 PO (14:26)
[2021-12-16 14:30] LABS: BACTERIA,URINE TRACE /HPF; RBC,URINE RARE /HPF; WBC,URINE RARE /HPF
[2021-12-16 14:31] LABS: HCG,QUALITATIVE URINE NEGATIVE (NEGATIVE)
[2021-12-16 14:33] LABS: AMPHETAMINE SCREEN, URINE NEGATIVE (NEGATIVE); BARBITURATE SCREEN URINE NEGATIVE (NEGATIVE); BENZODIAZEPINES SCREEN URINE NEGATIVE (NEGATIVE); CANNABINOID SCREEN, URINE POSITIVE (NEGATIVE); COCAINE SCREEN URINE NEGATIVE (NEGATIVE); METHADONE STAT NEGATIVE (NEGATIVE); OPIATE SCREEN URINE NEGATIVE (NEGATIVE); OXYCODONE STAT NEGATIVE (NEGATIVE); PROPOXYPHENE STAT NEGATIVE (NEGATIVE); TRICYCLIC ANTIDEPRESSANTS SCRE NEGATIVE (NEGATIVE)
[2021-12-16 14:54] VITALS: BP 113/61
== END 2021-12-16 14:55 | disposition home or self-care (01) ==
LOC: EDUNIT# 12:24 → ER 12:26
DX: R11.10 Vomiting, unspecified (principal); R25.8 Other abnormal involuntary movements; Z91.040 Latex allergy status
CPT/HCPCS: 36415; 70450; 80053; 80306; 80320; 81000; 83605; 83735; 84703; 85025; 93005